=== PATIENT | female | born 1975 | race African-American/Black ===

== ENCOUNTER 2017-03-05 16:29 | Emergency (ER) | payer MEDICAID, OTHER ==
[~2017-03-05] VITALS: Ht 157.5 cm; Wt 81.6 kg
[~2017-03-05 16:29] MED LIST: HYDR25TA4; METOPROLOL PO
[2017-03-05 17:55] LABS: Basophils # (auto) 0 uL; Basophils % (auto) 0.4 % (0.0-2.0); CONDITION Y; Eosinophils # (auto) 0.2 uL; Eosinophils % (auto) 2.6 % (0.0-7.0); Hematocrit 37.6 % (36.0-46.0); Hemoglobin 12.2 g/dL (12.2-16.2); Lymphocytes # (auto) 1.8 uL; Lymphocytes % (auto) 24.9 % (10.0-50.0); Mean Corpuscular Hemoglobin 27.7 pg (28.0-32.0); Mean Corpuscular Hgb Conc. 32.5 g/dL (32.0-36.0); Mean Platelet Volume 7.4 fL (7.4-10.4); Monocytes # (auto) 0.5 uL; Monocytes % (auto) 6.8 % (0.0-12.0); Neutrophils # (auto) 4.8 uL; Neutrophils % (auto) 65.3 % (37.0-80.0); Platelet Count (auto) 327 10^3/uL (140-450); White Blood Cell 7.4 10^3/uL (4.4-10.8)
[2017-03-05 18:08] LABS: Albumin 3.9 g/dL (3.4-5.0); Alkaline Phosphatase 51 U/L (45-117); Anion Gap 8 (5-15); Aspartate Aminotransferase 19 U/L (15-37); BUN/Creatinine Ratio 11.5; Bilirubin, Total 0.3 mg/dL (0.2-1.0); Blood Urea Nitrogen 9 mg/dL (7-18); Calcium 8.9 mg/dL (8.5-10.1); Carbon Dioxide 29 mmol/L (21-32); Chloride 105 mmol/L (98-107); GFR African American 105 mL/min; GFR Non-African American 87 mL/min; Glucose 96 mg/dL (74-106); Potassium 3.4 mmol/L (3.5-5.1); Sodium 142 mmol/L (136-145)
[2017-03-05 18:08] LABS: Urine Bilirubin Negative (Negative); Urine Blood Negative /uL (Negative); Urine Color Yellow (Yellow); Urine Glucose Normal (Normal); Urine Ketone TRACE (Negative); Urine Mucus FEW (None Seen); Urine Nitrite Negative (Negative); Urine RBC 3 /hpf (0 - 4); Urine Squamous Epithelial Cell FEW /hpf (<5)
[2017-03-05] MEDS ORDERED: ASPirin 81 mg TAB PO ONE (23:15)
[2017-03-05] MEDS ORDERED: HYDROcodone-ACET 5/325MG TAB PO ONE (23:15)
[2017-03-06 01:59] VITALS: BP 134/77
== END 2017-03-06 02:09 | disposition home or self-care (01) ==
LOC: ER 16:37
DX: R07.89 Other chest pain (principal); N61.0 Mastitis without abscess; Z79.899 Other long term (current) drug therapy
CPT/HCPCS: 36415; 71020; 80053; 80307; 81001; 81025; 84484; 85025; 85379; 93005

== ENCOUNTER 2017-05-19 10:45 | Emergency (ER) | payer MEDICAID, OTHER ==
[~2017-05-19] VITALS: Ht 157.5 cm; Wt 789.3 kg
[2017-05-19 11:25] VITALS: BP 158/81
== END 2017-05-19 11:38 | disposition home or self-care (01) ==
LOC: ER 10:45
DX: J01.10 Acute frontal sinusitis, unspecified (principal); I11.0 Hypertensive heart disease with heart failure; I50.9 Heart failure, unspecified; E78.5 Hyperlipidemia, unspecified; Z82.49 Family history of ischemic heart disease and other diseases of the circulatory system; Z83.3 Family history of diabetes mellitus

== ENCOUNTER 2018-06-14 10:10 | Emergency (ER) | payer MEDICAID, OTHER ==
[~2018-06-14] VITALS: Ht 157.5 cm; Wt 72.6 kg
[2018-06-14] MEDS ORDERED: KETOROLAC TROMETH 60MG/2ML VIAL IM ONE (11:15)
[2018-06-14 12:08] VITALS: BP 146/82
== END 2018-06-14 12:09 | disposition home or self-care (01) ==
LOC: ER 10:10
DX: N83.201 Unspecified ovarian cyst, right side (principal); K42.9 Umbilical hernia without obstruction or gangrene; I11.0 Hypertensive heart disease with heart failure; I50.9 Heart failure, unspecified; E78.5 Hyperlipidemia, unspecified; Z98.51 Tubal ligation status
CPT/HCPCS: 74176; 81002; 96372; 99284; J1885

== ENCOUNTER 2020-10-30 09:47 | Inpatient (IN) | payer MEDICAID, OTHER ==
[~2020-10-30] VITALS: Ht 157.5 cm; Wt 76.8 kg
[2020-10-30] MEDS ORDERED: SODIUM CHLORIDE 0.9% 500 ML IV ONE (10:00)
[2020-10-30] MEDS ORDERED: KETOROLAC TROMETH 30 MG/ML 1ML VIAL IV ONE (10:00)
[2020-10-30 10:24] LABS: Basophils # (auto) 0.1 10 ^3/uL (0-0.2); Basophils % (auto) 0.5 % (0.0-2.0); Eosinophils # (auto) 0.1 10 ^3/uL (0-0.8); Eosinophils % (auto) 0.7 % (0.0-7.0); Hemoglobin 13.4 g/dL (12.2-16.2); Lymphocytes # (auto) 1.6 10 ^3/uL (0.4-5.4); Lymphocytes % (auto) 16.1 % (10.0-50.0); Mean Corpuscular Hemoglobin 29.1 pg (28.0-32.0); Mean Corpuscular Hgb Conc. 33.4 g/dL (32.0-36.0); Mean Corpuscular Volume 87.3 fL (80.0-100.0); Monocytes # (auto) 0.7 10 ^3/uL (0-1.3); Monocytes % (auto) 7.5 % (0.0-12.0); Neutrophils # (auto) 7.4 10 ^3/uL (1.6-8.6); Neutrophils % (auto) 75.2 % (37.0-80.0); Nucleated Red Blood Cells % 0.1 %; Red Blood Cells 4.59 10^6/uL (4.0-5.20); Red Cell Distribution Width 13.9 % (11.8-14.3); White Blood Cell 9.8 10^3/uL (4.4-10.8)
[2020-10-30 10:53] LABS: Albumin 3.7 g/dL (3.4-5.0); Anion Gap 9 (5-15); Blood Urea Nitrogen 20 mg/dL (7-18); Calcium 8.5 mg/dL (8.5-10.1); Carbon Dioxide 23 mmol/L (21-32); Chloride 109 mmol/L (98-107); Glucose 110 mg/dL (74-106); Magnesium 2.4 mg/dL (1.6-2.6); Potassium 4.1 mmol/L (3.5-5.1); Sodium 141 mmol/L (136-145)
[2020-10-30 10:59] LABS: Alanine Aminotransferase 19 U/L (13-56); Alkaline Phosphatase 49 U/L (45-117); Aspartate Aminotransferase 17 U/L (15-37); BUN/Creatinine Ratio 23.5; Bilirubin, Total 0.3 mg/dL (0.2-1.0); GFR African American 93 mL/min; GFR Non-African American 77 mL/min; Total Protein 7.6 g/dL (6.4-8.2)
[2020-10-30] MEDS ORDERED: IOHEXOL 350 MG/ML 100ML IJ ONE (14:18)
[2020-10-30 14:59] LABS: Urine Bacteria FEW /hpf (None Seen); Urine Blood Negative /uL (Negative); Urine Mucus FEW (None Seen); Urine Specific Gravity 1.032 (1.001-1.035); Urine WBC 6 /hpf (0 - 5)
[2020-10-30 15:32] LABS: Alcohol, Urine < 3.0 mg/dL (0-10); Amphetamine Screen, Urine NEGATIVE (NEGATIVE); Barbiturate Scree,Urine NEGATIVE (NEGATIVE); Benzodiazephine Screen, Urine NEGATIVE (NEGATIVE); Cannabinoid Screen, Urine POSITIVE (NEGATIVE); Cocaine Screen, Urine NEGATIVE (NEGATIVE); Opiate Scree,Urine NEGATIVE (NEGATIVE); Phencyclidine Screen, Urine NEGATIVE (NEGATIVE)
[2020-10-30] MEDS ORDERED: methylPREDNISolone SOD SUCC 125 MG/2 ML VL IV ONE (16:15)
[2020-10-30] MEDS ORDERED: CHOLECALCIFEROL (VITD3) 2,000 UNIT CAP/TAB PO ONE (16:15)
[2020-10-30] MEDS ORDERED: ZINC SULFATE 220mg CAP or TAB PO ONE (16:15)
[2020-10-30] MEDS ORDERED: ASCORBIC ACID 500 MG TAB PO ONE (16:15)
[2020-10-30] MEDS ORDERED: ACETAMINOPHEN 325 MG TAB PO PRN (16:45)
[2020-10-30] MEDS ORDERED: MORPHINE SULFATE INJECTION 2 MG/ML SYRG IV PRN (16:45)
[2020-10-30] MEDS ORDERED: NITROGLYCERIN 0.4 MG SL TAB SL PRN (16:45)
[2020-10-30] MEDS ORDERED: ONDANSETRON HCL 4 MG/2 ML VIAL IV PRN (16:45)
[2020-10-30] MEDS: cefTRIAXone 1GM/50ML D5W 50 ML IV SCH (18:32)
[2020-10-30] MEDS: AZITHROMYCIN 500MG/ 250ML 250 ML IV SCH (18:33)
[2020-10-30 20:45] VITALS: BP 122/66
[2020-10-30] MEDS: MORPHINE SULFATE INJECTION 2 MG/ML SYRG IV PRN (21:28)
[2020-10-31] VITALS (7 sets, daily range): BP systolic 122–136; BP diastolic 65–86
[2020-10-31] MEDS: HYDROcodone-ACET 5/325MG TAB PO PRN ×4 (00:07→17:42)
[2020-10-31] MEDS: MORPHINE SULFATE INJECTION 2 MG/ML SYRG IV PRN ×5 (03:16→21:58)
[2020-10-31] MEDS: cefTRIAXone 1GM/50ML D5W 50 ML IV SCH (07:51)
[2020-10-31] MEDS: ENOXAPARIN SOD 40 MG/0.4 ML SYRINGE SC SCH (07:51)
[2020-10-31 08:24] LABS: Basophils # (auto) 0 10 ^3/uL (0-0.2); Basophils % (auto) 0.1 % (0.0-2.0); Eosinophils # (auto) 0 10 ^3/uL (0-0.8); Hematocrit 38.6 % (36.0-46.0); Hemoglobin 12.6 g/dL (12.2-16.2); Lymphocytes # (auto) 0.7 10 ^3/uL (0.4-5.4); Lymphocytes % (auto) 5.5 % (10.0-50.0); Mean Corpuscular Hemoglobin 28.6 pg (28.0-32.0); Mean Corpuscular Hgb Conc. 32.7 g/dL (32.0-36.0); Mean Corpuscular Volume 87.4 fL (80.0-100.0); Monocytes # (auto) 0.2 10 ^3/uL (0-1.3); Monocytes % (auto) 1.2 % (0.0-12.0); Neutrophils # (auto) 12.6 10 ^3/uL (1.6-8.6); Neutrophils % (auto) 93.2 % (37.0-80.0); Red Blood Cells 4.42 10^6/uL (4.0-5.20); Red Cell Distribution Width 13.8 % (11.8-14.3); White Blood Cell 13.5 10^3/uL (4.4-10.8)
[2020-10-31 08:46] LABS: Albumin 3.4 g/dL (3.4-5.0); Anion Gap 8 (5-15); Aspartate Aminotransferase 16 U/L (15-37); BUN/Creatinine Ratio 22.4; Blood Urea Nitrogen 17 mg/dL (7-18); Calcium 8.5 mg/dL (8.5-10.1); Carbon Dioxide 21 mmol/L (21-32); Chloride 111 mmol/L (98-107); GFR African American 106 mL/min; GFR Non-African American 87 mL/min; Glucose 163 mg/dL (74-106); Magnesium 2.3 mg/dL (1.6-2.6); Potassium 3.8 mmol/L (3.5-5.1); Sodium 140 mmol/L (136-145)
[2020-10-31 08:51] LABS: Alanine Aminotransferase 17 U/L (13-56); Alkaline Phosphatase 41 U/L (45-117); Bilirubin, Total 0.3 mg/dL (0.2-1.0); Total Protein 7.1 g/dL (6.4-8.2)
[2020-10-31] MEDS: AZITHROMYCIN 500MG/ 250ML 250 ML IV SCH (17:15)
[2020-11-01] MEDS: MORPHINE SULFATE INJECTION 2 MG/ML SYRG IV PRN ×3 (03:14→12:10)
[2020-11-01 05:00] VITALS: BP 138/91
[2020-11-01 07:35] VITALS: BP 129/77
[2020-11-01 08:30] VITALS: BP 129/77
[2020-11-01] MEDS: cefTRIAXone 1GM/50ML D5W 50 ML IV SCH (08:34)
[2020-11-01] MEDS: ENOXAPARIN SOD 40 MG/0.4 ML SYRINGE SC SCH (09:10)
[2020-11-01 10:45] VITALS: BP 129/77
[2020-11-01] MEDS ORDERED: levoFLOXacin 500 MG TAB PO ONE (11:30)
[2020-11-01 12:30] VITALS: BP 118/80
== END 2020-11-01 15:40 | disposition home or self-care (01) | DRG 139 ==
LOC: EDBD 09:47 → ER 09:47 → TELE 16:37 → TELE-EAST 20:42
PROVIDERS: ADMIT Internal Medicine; ATTEND Internal Medicine
DX: J12.9 Viral pneumonia, unspecified (principal); J96.01 Acute respiratory failure with hypoxia; I11.0 Hypertensive heart disease with heart failure; E66.01 Morbid (severe) obesity due to excess calories; I50.9 Heart failure, unspecified; R07.89 Other chest pain; Z20.822 Contact with and (suspected) exposure to COVID-19; J98.11 Atelectasis; E78.5 Hyperlipidemia, unspecified; F12.90 Cannabis use, unspecified, uncomplicated; Z80.49 Family history of malignant neoplasm of other genital organs; Z68.31 Body mass index [BMI] 31.0-31.9, adult; Z82.49 Family history of ischemic heart disease and other diseases of the circulatory system; Z90.710 Acquired absence of both cervix and uterus
CPT/HCPCS: 36415; 71045; 71275; 80053; 80307; 81001; 82728; 83735; 83880; 84484; 85025; 85379; 86141; 87426; 93005; 93306; 93970; 96361; 96365; 96368; 96375; G0378; J0696; J1885

== ENCOUNTER 2022-05-16 09:20 | Emergency (ER) | payer MEDICAID ==
[2022-05-16] MEDS ORDERED: ASPirin 325 MG TAB PO ONE (09:30)
[2022-05-16] MEDS ORDERED: ASPirin 81 mg TAB PO ONE (09:30)
[2022-05-16 09:58] LABS: Basophils # (auto) 0 10 ^3/uL (0-0.2); Basophils % (auto) 0.7 % (0.0-2.0); Eosinophils # (auto) 0 10 ^3/uL (0-0.8); Eosinophils % (auto) 0.7 % (0.0-7.0); Hematocrit 39.6 % (36.0-46.0); Hemoglobin 12.9 g/dL (12.2-16.2); Lymphocytes # (auto) 2.2 10 ^3/uL (0.4-5.4); Mean Corpuscular Hgb Conc. 32.5 g/dL (32.0-36.0); Mean Corpuscular Volume 85.9 fL (80.0-100.0); Monocytes # (auto) 0.4 10 ^3/uL (0-1.3); Monocytes % (auto) 6.2 % (0.0-12.0); Neutrophils # (auto) 4.3 10 ^3/uL (1.6-8.6); Neutrophils % (auto) 61.4 % (37.0-80.0); Nucleated Red Blood Cells % 0.1 %; Red Blood Cells 4.61 10^6/uL (4.0-5.20); Red Cell Distribution Width 13.1 % (11.8-14.3); White Blood Cell 7.1 10^3/uL (4.4-10.8)
[2022-05-16 10:08] LABS: Urine Bacteria NONE SEEN /hpf (None Seen); Urine Blood Negative /uL (Negative); Urine Specific Gravity 1.009 (1.001-1.035); Urine WBC 3 /hpf (0 - 5)
[2022-05-16] MEDS ORDERED: NITR-87 PO (10:25)
[2022-05-16 10:30] LABS: BUN/Creatinine Ratio 18.6; Bilirubin, Total 0.4 mg/dL (0.2-1.0); Total Protein 7.6 g/dL (6.4-8.2)
[2022-05-16 11:06] LABS: INR 0.92 (0.9-1.15); Partial Thromboplastin Time 27.6 sec (24.6-33.4)
[2022-05-16] MEDS ORDERED: LEVO-28 PO (14:43)
[2022-05-16] MEDS ORDERED: cefTRIAXone 1GM/50ML D5W 50 ML IV ONE (14:45)
[2022-05-16] MEDS ORDERED: FUROSEMIDE 20 MG TAB PO ONE (14:45)
[2022-05-16] MEDS ORDERED: levoFLOXacin 500 MG TAB PO ONE (14:45)
[2022-05-16] MEDS ORDERED: cefTRIAXone SOD 1,000 MG VL IM ONE (17:00)
[2022-05-16 17:02] VITALS: BP 148/62
== END 2022-05-16 17:48 | disposition home or self-care (01) ==
LOC: ER 09:20
DX: J18.9 Pneumonia, unspecified organism (principal); R07.89 Other chest pain; N39.0 Urinary tract infection, site not specified; I10 Essential (primary) hypertension; E78.5 Hyperlipidemia, unspecified; Z86.2 Personal history of diseases of the blood and blood-forming organs and certain disorders involving the immune mechanism; Z90.710 Acquired absence of both cervix and uterus; Z79.899 Other long term (current) drug therapy
CPT/HCPCS: 36415; 71045; 80053; 81001; 81025; 83880; 84484; 85025; 85379; 85610; 85730; 93005; 96372; 99285; J0696

== ENCOUNTER 2022-12-02 12:48 | Emergency (ER) | payer MEDICAID ==
[~2022-12-02] VITALS: Ht 177.8 cm; Wt 79.4 kg
[~2022-12-02 12:48] MED LIST changes: -HYDR25TA4; +LEVO500T91 PO; -METOPROLOL PO
[2022-12-02 13:17] VITALS: BP 116/59
[2022-12-02 13:50] LABS: Basophils # (auto) 0 10 ^3/uL (0-0.2); Basophils % (auto) 0.7 % (0.0-2.0); Eosinophils # (auto) 0.1 10 ^3/uL (0-0.8); Eosinophils % (auto) 1.4 % (0.0-7.0); Hematocrit 37.3 % (36.0-46.0); Hemoglobin 12.4 g/dL (12.2-16.2); Lymphocytes # (auto) 2.1 10 ^3/uL (0.4-5.4); Lymphocytes % (auto) 31.7 % (10.0-50.0); Mean Corpuscular Hemoglobin 28.9 pg (28.0-32.0); Mean Corpuscular Hgb Conc. 33.1 g/dL (32.0-36.0); Mean Corpuscular Volume 87.2 fL (80.0-100.0); Monocytes # (auto) 0.5 10 ^3/uL (0-1.3); Monocytes % (auto) 7.1 % (0.0-12.0); Neutrophils # (auto) 3.9 10 ^3/uL (1.6-8.6); Neutrophils % (auto) 59.1 % (37.0-80.0); Nucleated Red Blood Cells % 0.1 %; Red Blood Cells 4.28 10^6/uL (4.0-5.20); Red Cell Distribution Width 13.9 % (11.8-14.3); White Blood Cell 6.6 10^3/uL (4.4-10.8)
[2022-12-02 14:15] LABS: Albumin 3.6 g/dL (3.4-5.0); Calcium 8.2 mg/dL (8.5-10.1); Potassium 3.9 mmol/L (3.5-5.1)
[2022-12-02 14:19] LABS: BUN/Creatinine Ratio 16.9 (10.0-20.0); Bilirubin, Total 0.3 mg/dL (0.2-1.0)
== END 2022-12-02 14:46 | disposition home or self-care (01) ==
LOC: ER 12:48
DX: R20.0 Anesthesia of skin (principal); E78.5 Hyperlipidemia, unspecified; I11.0 Hypertensive heart disease with heart failure; I50.89 Other heart failure; F12.90 Cannabis use, unspecified, uncomplicated; Z90.710 Acquired absence of both cervix and uterus
CPT/HCPCS: 36415; 70450; 71046; 80053; 83880; 85025; 93005

== ENCOUNTER 2023-05-30 22:10 | Emergency (ER) | payer MEDICAID ==
[~2023-05-30] VITALS: Ht 167.6 cm; Wt 85.0 kg
[~2023-05-30 22:10] MED LIST changes: +BACDST PO; +HYDR-4902 PO; +METH-1181 PO
[2023-05-30 22:32] VITALS: BP 120/79; PULSE 88; RESP 18; TEMP 98.4; O2SAT 98
[2023-05-30 23:05] LABS: Basophils # (auto) 0 10 ^3/uL (0-0.2); Basophils % (auto) 0.5 % (0.0-2.0); Eosinophils # (auto) 0 10 ^3/uL (0-0.8); Eosinophils % (auto) 0.5 % (0.0-7.0); Hematocrit 37.2 % (36.0-46.0); Hemoglobin 12.3 g/dL (12.2-16.2); Lymphocytes # (auto) 2.4 10 ^3/uL (0.4-5.4); Lymphocytes % (auto) 25.6 % (10.0-50.0); Mean Corpuscular Hemoglobin 28.5 pg (28.0-32.0); Mean Corpuscular Volume 86.2 fL (80.0-100.0); Monocytes # (auto) 0.7 10 ^3/uL (0-1.3); Monocytes % (auto) 7.2 % (0.0-12.0); Neutrophils # (auto) 6.2 10 ^3/uL (1.6-8.6); Neutrophils % (auto) 66.2 % (37.0-80.0); Red Blood Cells 4.31 10^6/uL (4.0-5.20); Red Cell Distribution Width 13.4 % (11.8-14.3); White Blood Cell 9.4 10^3/uL (4.4-10.8)
[2023-05-30 23:18] LABS: Alanine Aminotransferase 19 U/L (7-40); Alkaline Phosphatase 55 U/L (46-116); Anion Gap 7 (5-15); Aspartate Aminotransferase 18 U/L (13-40); BUN/Creatinine Ratio 18.3 (10.0-20.0); Blood Urea Nitrogen 17 mg/dL (9-23); Calcium 8.8 mg/dL (8.7-10.4); Carbon Dioxide 26 mmol/L (20-30); Chloride 107 mmol/L (98-107); Glucose 137 mg/dL (74-106); Lipase 27 U/L (12-53); Potassium 3.5 mmol/L (3.5-5.1); Sodium 140 mmol/L (136-145)
[2023-05-30 23:19] LABS: Albumin 4.2 g/dL (3.2-4.8); Bilirubin, Total 0.4 mg/dL (0.2-1.0); Total Protein 6.8 g/dL (5.7-8.2)
[2023-05-31] MEDS ORDERED: DICYCLOMINE HCL (10MG/ML) 2 ML AMPULE IM ONE (00:15)
[2023-05-31] MEDS ORDERED: DICY10CA PO (00:25)
== END 2023-05-31 01:00 | disposition home or self-care (01) ==
LOC: EDBD 22:10 → ER 22:10 → EDUNIT# 22:10 → ER 05-31 01:00
DX: R10.84 Generalized abdominal pain (principal); I11.0 Hypertensive heart disease with heart failure; I50.9 Heart failure, unspecified; E78.5 Hyperlipidemia, unspecified; Z86.2 Personal history of diseases of the blood and blood-forming organs and certain disorders involving the immune mechanism; Z90.710 Acquired absence of both cervix and uterus; Z79.2 Long term (current) use of antibiotics; Z79.899 Other long term (current) drug therapy
CPT/HCPCS: 36415; 80053; 83690; 85025; 96372; 99283; J0500

== ENCOUNTER 2024-07-22 18:54 | Emergency (ER) | payer MEDICAID ==
[~2024-07-22] VITALS: Ht 157.5 cm; Wt 82.1 kg
[~2024-07-22 18:54] MED LIST changes: +DICY10CA PO
[2024-07-22 23:55] VITALS: BP 149/77; PULSE 82; RESP 18; TEMP 98; O2SAT 98
[2024-07-23] MEDS ORDERED: IBUP-1456 PO (00:09)
[2024-07-23] MEDS ORDERED: CYCL-614 PO (00:09)
--- NOTE | 2024-07-23 00:09 | ED.PDOC ---
Musculoskeletal HPI Comments 48-year-old female presents to ER with complaints of fall injury x1 day. Patient reports that she slipped and fell onto black ice one day ago and landed on her right side onto pavement and has since been experiencing 10/10 pain to right elbow, right hip, right lower lumbar pain and to right side of neck. Denies head injury/LOC. Notes that she has been taking gabapentin for her symptoms without relief. Patient presents to ER ambulatory on arrival, with steady gait, in no distress. Denies numbness/tingling or any further symptoms/complaints Chief Complaint: Upper Extremity Time Seen by MD: 19:44 Primary Care Provider: GUALBERTO Worley Notes: Nurses Notes, Medications, Allergies Allergies: Coded Allergies: NO KNOWN ALLERGIES (Unverified , 07/14/10) Home Meds Active Scripts Ibuprofen (Ibuprofen) 800 Mg Tab, 1 TAB PO TID PRN, #30 TAB 0 Refills Prov:VNEU CHRISTY 07/23/24 Cyclobenzaprine HCl (Cyclobenzaprine Hydrochlo) 5 Mg Tab, 5 MG PO QHSP, #14 TAB 0 Refills Prov:VENU CHRISTY 07/23/24 Dicyclomine Hcl (BENTYL CAPSULE) 10 Mg Cp, 1 CAP PO Q6HPRN PRN, #20 CAP 3 Refills Prov:JOSE E HOLT DO 05/31/23 Sulfamethoxazole W/Trimethopri (Bactrim Ds Tablet) 1 Tab Tb, 1 TAB PO BID for 5 Days, #10 TAB Prov:SAMAN MCKENZIE BEAD WRAPPER 01/20/23 Hydrocodone-Acetaminophen (Hydrocodone Bitartrate/AC 5-325 mg) 1 Tab Tab, 1 TAB PO BID PRN for 3 Days, #6 TAB Prov:SAMAN MCKENZIE BEAD WRAPPER 01/20/23 Methocarbamol (Methocarbamol) 500 Mg Tab, 500 MG PO TID PRN for 30 Days, #90 TAB 2 Refills Prov:SAMAN MCKENZIE BEAD WRAPPER 01/20/23 Levofloxacin Hemihydrate (LEVOFLOXACIN) 500 Mg Tab, 1 TAB PO DAILY for 10 Days, #10 TAB Prov:VERONIKA JOHNSON MD 05/16/22 Information Source: Patient Mode of Arrival: Ambulatory Past Medical History PAST MEDICAL HISTORY: Anemia, CHF, High Lipids, HTN Surgical History: Hysterectomy [employer]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 History Family History Family History: Family hx of Cancer Social History Smoker: Non-Smoker Alcohol: Rarely Drugs: Marijuana Lives In: Home Constitutional: denies: chills, diaphoresis, fatigue, fever, malaise, sweats, weakness, others EENTM: denies: blurred vision, double vision, ear bleeding, ear discharge, ear drainage, ear pain, ear ringing, eye pain, eye redness, hearing loss, mouth pain, mouth swelling, nasal discharge, nose bleeding, nose congestion, nose pain, photophobia, tearing, throat pain, throat swelling, voice changes, others Respiratory: denies: cough, hemoptysis, orthopnea, SOB at rest, shortness of breath, SOB with excertion, stridor, wheezing, others Cardiovascular: denies: chest pain, dizzy spells, diaphoresis, Dyspnea on exertion, edema, irregular heart beat, left arm pain, lightheadedness, palpitations, PND, syncope, others Gastrointestinal: denies: abdomen distended, abdominal pain, blood streaked bowels, constipated, diarrhea, dysphagia, difficulty swallowing, hematemesis, melena, nausea, poor appetite, poor fluid intake, rectal bleeding, rectal pain, vomiting, others Genitourinary: denies: abnormal vagina bleeding, burning, dyspareunia, dysuria, flank pain, frequency, hematuria, incontinence, pain, , vagina discharge, urgency, others Neurological: denies: dizziness, fainting, headache, left sided numbness, left sided weakness, numbness, paresthesia, pre-existing deficit, right sided numbness, right sided weakness, seizure, speech problems, tingling, tremors, weakness, others Musculoskeletal: reports: others (As stated in HPI) Integumetry: denies: bruises, change in color, change in hair/nails, dryness, laceration, lesions, lumps, rash, wounds, others Allergic/Immunocompromised: denies: Difficulty Healing, Frequent Infections, Hives, Itching, others Hematologic/Lymphatic: denies: anemia, blood clots, easy bleeding, easy bruising, swollen glands, others Endocrine: denies: excessive hunger, excessive sweating, excessive thirst, excessive urination, flushing, intolerance to cold, intolerance to heat, unexplained weight gain, unexplained weight loss, others Psychiatric: denies: anxiety, bipolar disorder, depression, hopeless, panic disorder, schizophrenia, sleepless, suicidal, others Physical Exam General Appearance: No Apparent Distress, Obese HEENT: Normal ENT Inspection, PERRL/EOMI, Pharynx Normal, TMs Normal Neck: Full Range of Motion, Other (TTP to right cervical paraspinals noted. No skin changes noted) Respiratory: Chest Non-Tender, Lungs Clear, No Accessory Muscle Use, No Respiratory Distress, Normal Breath Sounds Cardiovascular: No Murmur, No Gallop, Regular Rate/Rhythm Breast Exam: Deferred Gastrointestinal: Non Tender, No Pulsatile Mass, Soft Genitalia: Deferred Pelvic: Deferred Rectal: Deferred Extremities: Normal capillary refill, Normal range of motion Musculoskeletal : Extremity Location: Back (TTP to right lower lumbar paraspinals and to right hip noted. No skin changes noted. Steady gait appreciated), Elbow (TTP/mild swelling diffuse to right elbow noted. No deformity/further skin changes noted. Patient able to fully move right elbow) Neurologic: Alert, police [employer] II-XII nml as Tested, No Motor Deficits, Normal Affect, Normal Mood, No Sensory Deficits Cerebellar Function: Normal Reflexes: Normal Skin: Dry, Normal Color, Warm Peripheral Pulses: 2+ carotid (R), 2+ carotid (L), 2+ femoral (R), 2+ femoral (L), 2+ dorsalis pedis (R), 2+ dorsalis pedis (L), 2+ Radial (R), 2+ Radial (L), 2+ Brachial (R), 2+ Brachial (L) Lymphatic: No Adenopathy Was a procedure done? Was a procedure done?: No Sedation Sedation?: No Differential Diagnosis EXT Differential Diagnosis: Dislocation, Laceration, Neurovascular injury X-Ray, Labs, Meds, VS Vital Signs Date Time Temp Pulse Resp B/P (MAP) Pulse Ox O2 Delivery O2 Flow Rate FiO2 07/22/24 23:55 98.0 84 18 149/77 (101) 98 98.0 07/22/24 23:55 82 18 98 Room Air* 0 21 07/22/24 19:33 97.8 74 16 154/77 (102) 98 Current Medications Medications (Trade) Dose Ordered Sig/Camille Route Start Time Stop Time Status Last Admin Acetaminophen/ Hydrocodone Bitart (Costilla 5/325MG Tab) 1 tab ONCE ONCE PO 07/23/24 00:00 07/23/24 00:01 DC 07/23/24 00:12 Ondansetron HCl (Zofran Po) 4 mg ONCE ONCE PO 07/23/24 00:00 07/23/24 00:01 DC 07/23/24 00:12 PATIENT: SEAN INFANTEACCT: [id number]: [id number] : 1975 LOC: ER ROOM / BED: / AGE / SEX: 48 / F ADM STATUS: REG ER SERVICE 53 ORDERING PHYSICIAN: VENU CHRISTY PROCEDURE(s): RELB3 - R ELBOW 3 VIEW XRAY REASON: right elbow pain ORDER NUMBER(s): [id number], ACCESSION NUMBER(s): [id number] CLINICAL INDICATION: right elbow pain TECHNIQUE: XY R ELBOW 3 VIEW XRAY Comparison: None FINDINGS/IMPRESSION: : Tiny linear osseous densities adjacent to the bilateral distal humerus epicondyles which may be sequelae of age-indeterminate trauma. Correlate with point tenderness. Otherwise no acute fracture. Soft tissues are unremarkable. ATED BY: DIANA MORALES MD DICTATED DATE/TIME: 07/23/2451 SIGNED BY: DIANA MORALES MD SIGNED DATE/TIME: 07/23/2451 CC: PATIENT: SEAN INFANTE ACCT: [id number] UNIT: [id number] : 1975 LOC: ER ROOM / BED: / AGE / SEX: 48 / F ADM STATUS: REG ER SERVICE ORDERING PHYSICIAN: VENU CHRISTY PROCEDURE(s): CERV2 - CERVICAL SPINE 3V REASON: neck pain ORDER NUMBER(s): [id number], ACCESSION NUMBER(s): [id number] EXAMINATION: Cervical spine radiograph CLINICAL HISTORY: neck pain COMPARISON: None FINDINGS: Normal alignment of the cervical spine visualized C7-T1. Mild degenerative disc disease and osteophyte formation at C5-C6 and C6-C7. No abnormal prevertebral soft tissue swelling. No prevertebral soft tissue swelling. Lung apices are rylie ar. Overlying soft tissues are intact IMPRESSION: Mild multilevel cervical spondylosis. No acute fracture or traumatic malali gnment ATED BY: DIANA MORALES MD DICTATED DATE/TIME: 07/23/2446 SIGNED BY: DIANA MORALES MD SIGNED DATE/TIME: 07/23/2446 CC: PATIENT: SEAN INFANTE ACCT: [id number] UNIT: [id number] : 1975 LOC: ER ROOM / BED: / AGE / SEX: 48 / F ADM STATUS: REG ER SERVICE 235 ORDERING PHYSICIAN: VENU CHRISTY PROCEDURE(s): RFEM - R FEMUR XRAY REASON: right femur pain ORDER NUMBER(s): [id number], ACCESSION NUMBER(s): [id number] CLINICAL INDICATION: right femur pain TECHNIQUE: XY R FEMUR XRAY Comparison: None FINDINGS/IMPRESSION: : There is no evidence of acute fracture or dislocation. Soft tissues are unremarkable. ATED BY: DIANA MORALES MD DICTATED DATE/TIME: 07/23/24101 SIGNED BY: DIANA MORALES MD SIGNED DATE/TIME: 07/23/24101 CC: PATIENT: SEAN INFANTE ACCT: [id number] UNIT: [id number] : 1975 LOC: ER ROOM / BED: / AGE / SEX: 48 / F ADM STATUS: REG ER SERVICE 235 ORDERING PHYSICIAN: VENU CHRISTY PROCEDURE(s): LUMB2 - LUMBAR SPINE 3 VIEW REASON: lumbar back pain ORDER NUMBER(s): [id number], ACCESSION NUMBER(s): [id number] EXAMINATION: Lumbar spine radiograph CLINICAL HISTORY: lumbar back pain COMPARISON: XY LUMBAR SPINE 3 VIEW on DOS: 01/20/23 FINDINGS: 5 [id number] lumbar type vertebral bodies. The pedicles are intact. Sacroiliac joints are maintained. Hip joints are maintained. Vertebral body heights are maintained. Mild degenerative narrowing of the L4-L5 disc space. Mild multilevel lower thoracic and lumbar spondylosis. No acute fracture. Overlying soft tissues are intact. Visualized bowel gas is nonobstructed. Tubal ligation clip projects over the left pelvis. IMPRESSION: Minor lumbar spondylosis. No acute fracture ATED BY: DIANA MORALES MD DICTATED DATE/TIME: 07/23/2453 SIGNED BY: DIANA MORALES MD SIGNED DATE/TIME: 07/23/2453 CC: Costilla 5/325 mg p.o. ordered Zofran 4 mg p.o. ordered All x-ray imaging reviewed Patient neurovascularly intact and reported improvement in symptoms prior to discharge Advised on rest/no strenuous activity and alternate ice on/off as needed for pain Right posterior long-arm splint applied Right arm sling applied Patient provided information with regards to local orthopedics and advised to follow up in 1-2 days Advised to follow up with PCP in 1-2 days Patient verbalized understanding and agreeable with current plan of care Advised to return to ER immediately if symptoms worsen Images Reviewed?: Images reviewed and evaluated by me Time of 1ST Reevaluation: 00:02 Reevaluation 1ST: N/A Time of 2ND Reevaluation: :22 Reevaluation 2ND: Improved Patient Education/Counseling: Diagnosis, Treatment, Prognosis, Need For Follow Up Family Education/Counseling: No Family Present Departure 1 Departure Time of Disposition: :24 Impression: Primary Impression: Elbow fracture, right Qualified Codes: S42.401A - Unspecified fracture of lower end of right humerus, initial encounter for closed fracture Additional Impressions: Cervical strain Qualified Codes: S16.1XXA - Strain of muscle, fascia and tendon at neck level, initial encounter Lumbar strain Qualified Codes: S39.012A - Strain of muscle, fascia and tendon of lower back, initial encounter Contusion of hip, right Qualified Codes: S70.01XA - Contusion of right hip, initial encounter Disposition: HOME / SELF CARE / HOMELESS Condition: Stable e-Prescriptions Acetaminophen W/ Codeine (Tylenol W/Cod #3) 1 Tab Tb 1 TAB PO Q6HPRN, #10 TAB 0 Refills Prov: VENU CHRISTY 07/23/24 Ibuprofen (Ibuprofen) 800 Mg Tab 1 TAB PO TID PRN, #30 TAB 0 Refills Prov: VENU CHRISTY 07/23/24 Cyclobenzaprine HCl (Cyclobenzaprine Hydrochlo) 5 Mg Tab 5 MG PO QHSP, #14 TAB 0 Refills Prov: VENU CHRISTY 07/23/24 Discharged With: Other (Daughter) Critical Care Note Critical Care Time?: No Stability Stability form required: No Heart Score Heart Score: Heart Score Response (Comments) Value History N/A 0 EKG N/A 0 Age N/A 0 Risk Factors N/A 0 Troponin N/A 0 Total 0 VENU CHRISTY Jul 23, 2024 00:09
[2024-07-23] MEDS: ONDANSETRON ODT 4 MG TAB PO ONE (00:12)
[2024-07-23] MEDS: HYDROcodone-ACET 5/325MG TAB PO ONE (00:12)
--- NOTE | 2024-07-23 00:50 | DVH ---
EXAMINATION: Cervical spine radiograph CLINICAL HISTORY: neck pain COMPARISON: None FINDINGS: Normal alignment of the cervical spine visualized C7-T1. Mild degenerative disc disease and osteophyt e formation at C5-C6 and C6-C7. No abnormal prevertebral soft tissue swelling. No prevertebral soft t issue swelling. Lung apices are clear. Overlying soft tissues are intact IMPRESSION: Mild multilevel cervical spondylosis. No acute fracture or traumatic malalignment
--- NOTE | 2024-07-23 00:54 | DVH ---
CLINICAL INDICATION: right elbow pain TECHNIQUE: XY R ELBOW 3 VIEW XRAY Comparison: None FINDINGS/IMPRESSION: : Tiny linear osseous densities adjacent to the bilateral distal humerus epicondyles which may be seque lae of age-indeterminate trauma. Correlate with point tenderness. Otherwise no acute fracture. Soft tissues are unremarkable.
--- NOTE | 2024-07-23 00:56 | DVH ---
EXAMINATION: Lumbar spine radiograph CLINICAL HISTORY: lumbar back pain COMPARISON: XY LUMBAR SPINE 3 VIEW on DOS: 01/20/23 FINDINGS: 5 [id number]-lcrmeop lumbar type vertebral bodies. The pedicles are intact. Sacroiliac joints are main tained. Hip joints are maintained. Vertebral body heights are maintained. Mild degenerative narrowing of the L4-L5 disc space. Mild multilevel lower thoracic and lumbar spondylosis. No acute fracture. Overlying soft tissues are intact. Visualized bowel gas is nonobstructed. Tubal ligation clip project s over the left pelvis. IMPRESSION: Minor lumbar spondylosis. No acute fracture
--- NOTE | 2024-07-23 01:05 | DVH ---
CLINICAL INDICATION: right femur pain TECHNIQUE: XY R FEMUR XRAY Comparison: None FINDINGS/IMPRESSION: : There is no evidence of acute fracture or dislocation. Soft tissues are unremarkable.
[2024-07-23] MEDS ORDERED: ACE3T PO (01:25)
== END 2024-07-23 01:59 | disposition home or self-care (01) ==
LOC: ER 19:00
DX: S42.401A Unspecified fracture of lower end of right humerus, initial encounter for closed fracture (principal); S30.0XXA Contusion of lower back and pelvis, initial encounter; S16.1XXA Strain of muscle, fascia and tendon at neck level, initial encounter; S39.012A Strain of muscle, fascia and tendon of lower back, initial encounter; W00.0XXA Fall on same level due to ice and snow, initial encounter; Y93.89 Activity, other specified; Y92.89 Other specified places as the place of occurrence of the external cause; Y99.8 Other external cause status; I11.0 Hypertensive heart disease with heart failure; I50.9 Heart failure, unspecified; Z90.710 Acquired absence of both cervix and uterus
CPT/HCPCS: 29105; 72040; 72100; 73080; 73552; 99284; Q0162